=== PATIENT | female | born 1930 | race Caucasian/White ===

== ENCOUNTER 2016-09-24 16:28 | Emergency (ER) | payer OTHER ==
[~2016-09-24] VITALS: Ht 152.4 cm; Wt 51.7 kg
[~2016-09-24 16:28] MED LIST: ADULT LOW DOSE81 MG PO; AMOX TR-K CLV1 EAC4 PO; BACTRIM DS TAB1 EACH PO; CALCIUM 500 +1 EAC5 PO; CENTRUM SILVER1 EAC1 PO; DOXYCYCLINE 10100 MG PO; FISH OIL 1,2001 EAC3 PO; FISH OIL SOFTG1 EACH PO; FISHOIL; FOSAMAX 70 MG T70 M1 PO; LIPITOR10 MG PO; MECLIZINE HCL25 M1 PO; NORVASC 5 MG TAB5 MG PO; PREMARIN0.3 MG PO; TRETINOIN 0.05%60 GM TP; VITAMINC500 PO
[2016-09-24 19:04] LABS: URINE BILIRUBIN NEGATIVE (Negative); URINE BLOOD 1+ (Negative); URINE COLOR YELLOW; URINE GLUCOSE-RANDOM* NEGATIVE (Negative); URINE KETONES NEGATIVE (Negative); URINE NITRITE POSITIVE (Negative); URINE PROTEIN (DIPSTICK) NEGATIVE (Negative); URINE SPECIFIC GRAVITY 1.015 (1.003-1.035); URINE UROBILINOGEN 0.2 E.U./dl (0.2-1.0)
[2016-09-24 19:08] LABS: BACTERIA >30 Many /HPF (None Seen); CASTS None Seen /LPF (None Seen); CRYSTALS None Seen /LPF (None Seen); SQUAMOUS 4-10 Moderate /LPF (0-3); URINE RBC 3-10 Few /HPF (0-2); URINE WBC 6-15 Few /HPF (0-5)
[2016-09-24] MEDS ORDERED: MACROBID 100 M100 M1 PO (19:27)
[2016-09-24 19:49] VITALS: BP 121/64
[2016-09-24] MEDS ORDERED: ALDACTONE25 MG PO (19:54)
[2016-09-24] MEDS ORDERED: XARELTO15 MG PO (19:54)
[2016-09-24] MEDS ORDERED: CARVEDILOL6.25 MG PO (19:54)
[2016-09-24] MEDS ORDERED: LASIX 40 MG TAB40 M2 PO (19:54)
[2016-09-24] MEDS ORDERED: VOLTAREN GEL 1100 G2 TOP (19:55)
== END 2016-09-24 20:13 | disposition home or self-care (01) ==
LOC: ER 16:28
PROVIDERS: Physician Assistant
DX: N39.0 Urinary tract infection, site not specified (principal); I10 Essential (primary) hypertension; Z90.710 Acquired absence of both cervix and uterus; Z85.828 Personal history of other malignant neoplasm of skin; Z98.890 Other specified postprocedural states; Z88.5 Allergy status to narcotic agent; Z91.041 Radiographic dye allergy status; Z88.8 Allergy status to other drugs, medicaments and biological substances